=== PATIENT | female | born 1945 | race Caucasian/White ===

== ENCOUNTER 2018-06-18 15:06 | Emergency (ER) | payer MEDICARE, OTHER ==
[~2018-06-18] VITALS: Ht 152.4 cm; Wt 57.1 kg
[~2018-06-18 15:06] MED LIST: ATEN25; CALGLU500; FENT50TP; GABA600; GLUC500; HYDACE5 PO; LORA1; META800 PO; METO50ER; Norco 7.5-3251 EACH; Pravachol40 MG; TRET.1TC; VALD20 PO; XARELTO20 MG
[2018-06-18 15:35] LABS: BASOPHILS ABSOLUTE AUTO 0.04 K/mm3 (0.00-0.23); BASOPHILS PERCENT AUTO 1 % (0-2); EOSINOPHILS ABSOLUTE AUTO 0.04 K/mm3 (0.00-0.68); EOSINOPHILS PERCENT AUTO 1 % (0-6); Hematocrit 45.3 % (33.0-51.0); Hemoglobin 14.7 g/dL (11.5-16.0); IMMATURE GRAN ABSOLUTE AUTO 0.02 K/mm3 (0.00-0.10); IMMATURE GRAN PERCENT AUTO 0 % (0-1); LYMPHOCYTES PERCENT AUTO 14 % (21-46); MONOCYTES ABSOLUTE AUTO 0.46 K/mm3 (0.16-1.47); MONOCYTES PERCENT AUTO 6 % (4-13); Mean Corpuscular HGB 30.1 pg (26.0-34.0); Mean Corpuscular HGB Conc 32.5 g/dL (31.5-36.5); Mean Corpuscular Volume 93 fL (80-100); Mean Platelet Volume 9.6 fL (9.1-12.4); NEUTROPHILS ABSOLUTE AUTO 6.24 K/mm3 (1.96-9.15); NEUTROPHILS PERCENT AUTO 79 % (41-73); Platelet Count 246 K/mm3 (150-400); RDW Coefficient Variation 13.5 % (11.7-14.2); RDW Standard Deviation 46.4 fL (35.1-46.3); Red Blood Cell Count 4.88 M/mm3 (3.80-5.20)
[2018-06-18 15:47] LABS: International Normalized Ratio 1.04; Prothrombin Time Results 10.7 Sec (9.7-11.5)
[2018-06-18 15:54] LABS: Alanine Aminotransfer (ALT/SGP 18 U/L (12-78); Albumin, Blood 3.9 g/dL (3.4-5.0); Albumin/Globulin Ratio 0.9 (0.8-1.8); Alk Phos 76 U/L (50-136); Anion Gap 8 mmol/L (6-16); Aspartate Aminotrans (AST/SGOT 21 U/L (12-37); Bilirubin, Total 0.3 mg/dL (0.1-1.0); Blood Urea Nitrogen 13 mg/dL (8-24); Bun/Creatinine Ratio 15.3 (12.0-20.0); CO2, Blood 22 mmol/L (21-32); Chloride, Blood 108 mmol/L (98-108); Creatinine, Blood 0.85 mg/dL (0.40-1.00); Globulin, Blood 4.2 g/dL (2.2-4.0); Glomerular Filtration Rate >60 (60-); Glucose, Blood 102 mg/dL (70-99); Sodium, Blood 138 mmol/L (136-145); Total Protein, Blood 8.1 g/dL (6.4-8.2); Troponin I <0.015 ng/mL (0.000-0.040)
[2018-06-18] MEDS ORDERED: Norco 10-325 T1 EACH PO (18:58)
== END 2018-06-18 19:42 | disposition home or self-care (01) ==
LOC: ER 15:06
PROVIDERS: Emergency Medicine
DX: M25.512 Pain in left shoulder (principal); Z79.899 Other long term (current) drug therapy; Z87.891 Personal history of nicotine dependence
CPT/HCPCS: 36415; 71046; 71275; 80053; 84484; 85025; 85610; 85730; 93005; 93010; 96374; 96375; 96376; 99284-25; J2060; J3010; Q9967

== ENCOUNTER 2018-10-05 15:08 | Inpatient (IN) | payer MEDICARE, OTHER ==
[~2018-10-05] VITALS: Ht 154.9 cm; Wt 58.2 kg
[~2018-10-05 15:08] MED LIST changes: -FENT50TP; +FENT50TP TOP; +Norco 10-325 T1 EACH PO; -XARELTO20 MG; +XARELTO20 MG PO
[2018-10-05] MEDS ORDERED: Hydrocodone-Ap1 EA20 (15:29)
[2018-10-05 17:08] LABS: BASOPHILS ABSOLUTE AUTO 0.04 K/mm3 (0.00-0.23); BASOPHILS PERCENT AUTO 1 % (0-2); EOSINOPHILS ABSOLUTE AUTO 0.05 K/mm3 (0.00-0.68); EOSINOPHILS PERCENT AUTO 1 % (0-6); Hematocrit 42.1 % (33.0-51.0); Hemoglobin 13.6 g/dL (11.5-16.0); IMMATURE GRAN ABSOLUTE AUTO 0.02 K/mm3 (0.00-0.10); IMMATURE GRAN PERCENT AUTO 0 % (0-1); LYMPHOCYTES ABSOLUTE AUTO 0.95 K/mm3 (0.84-5.20); LYMPHOCYTES PERCENT AUTO 11 % (21-46); MONOCYTES ABSOLUTE AUTO 0.63 K/mm3 (0.16-1.47); MONOCYTES PERCENT AUTO 8 % (4-13); Mean Corpuscular HGB 30.8 pg (26.0-34.0); Mean Corpuscular HGB Conc 32.3 g/dL (31.5-36.5); Mean Corpuscular Volume 95 fL (80-100); Mean Platelet Volume 8.7 fL (9.1-12.4); NEUTROPHILS ABSOLUTE AUTO 6.64 K/mm3 (1.96-9.15); NEUTROPHILS PERCENT AUTO 80 % (41-73); Platelet Count 357 K/mm3 (150-400); RDW Coefficient Variation 12.7 % (11.7-14.2); RDW Standard Deviation 44.7 fL (35.1-46.3); Red Blood Cell Count 4.42 M/mm3 (3.80-5.20); White Blood Cell Count 8.33 K/mm3 (4.00-11.30)
[2018-10-05 17:37] LABS: Alanine Aminotransfer (ALT/SGP 18 U/L (12-78); Albumin, Blood 3.3 g/dL (3.4-5.0); Albumin/Globulin Ratio 0.8 (0.8-1.8); Alk Phos 70 U/L (50-136); Anion Gap 8 mmol/L (6-16); Aspartate Aminotrans (AST/SGOT 22 U/L (12-37); Bilirubin, Total 0.5 mg/dL (0.1-1.0); Blood Urea Nitrogen 11 mg/dL (8-24); Bun/Creatinine Ratio 16.6 (12.0-20.0); CO2, Blood 27 mmol/L (21-32); Calcium, Blood 8.8 mg/dL (8.5-10.1); Chloride, Blood 100 mmol/L (98-108); Creatinine, Blood 0.66 mg/dL (0.40-1.00); Globulin, Blood 4.1 g/dL (2.2-4.0); Glomerular Filtration Rate >60 (60-); Glucose, Blood 83 mg/dL (70-99); Potassium, Blood 4.5 mmol/L (3.5-5.5); Sodium, Blood 135 mmol/L (136-145); Total Protein, Blood 7.4 g/dL (6.4-8.2)
[2018-10-05 17:41] LABS: Source, Urine Catheter
[2018-10-05 17:48] LABS: Appearance, Urine Clear (Clear); Bilirubin, Urine Neg (Neg); Blood, Urine Neg (Neg); Color, Urine Yellow (P-Yellow); Glucose Qualitative, Urine Neg (Neg); Ketones, Urine Neg (Neg); Leukocyte Esterase, Urine 3+ (Neg); Nitrite, Urine Neg (Neg); Protein, Urine 1+ (Neg); Specific Gravity, Urine 1.015 (1.003-1.022); Urobilinogen, Urine NORM (Normal)
[2018-10-05 18:05] LABS: Bacteria Not Seen /hpf; Red Blood Cells, Urine Not Seen /hpf (0-2); Squamous Epithelial Cells Mod /hpf (Few)
--- NOTE | 2018-10-05 18:14 | NUR ---
PT HERE FROM ER [facility]IA [facility]. PT MULT ASSIST TO BED, TOLERATED WELL. PT ABLE TO MOVE R FOOT. PT HAS BRUISE TO R INNER THIGH. PT HAS KARIMI IN PLACE. NO SORES TO HEELS OR BOTTOM. PT A/O. REPORTS PAIN TOLERABLE. DENIES CP/SO, NAUSEA. PPX4. PT REPORTS HAVING NO MEDICATIONS IN BELONGINGS. SOME BELONGINGS SENT HOME WITH .
--- NOTE | 2018-10-05 22:44 | NUR ---
PROVIDER COMMUNICATION AT 2242, DR. POLANCO NOTIFIED PT CHRONIC PAIN, HOME PAIN MANGEMENT AND PT REQUEST FOR SLEEP AID. ORDERS RECIEVED AND ENTERED. TM.
[2018-10-06 08:02] LABS: BASOPHILS ABSOLUTE AUTO 0.03 K/mm3 (0.00-0.23); BASOPHILS PERCENT AUTO 0 % (0-2); EOSINOPHILS PERCENT AUTO 2 % (0-6); Hematocrit 40.7 % (33.0-51.0); Hemoglobin 13.3 g/dL (11.5-16.0); IMMATURE GRAN ABSOLUTE AUTO 0.03 K/mm3 (0.00-0.10); IMMATURE GRAN PERCENT AUTO 0 % (0-1); LYMPHOCYTES ABSOLUTE AUTO 0.89 K/mm3 (0.84-5.20); LYMPHOCYTES PERCENT AUTO 13 % (21-46); MONOCYTES ABSOLUTE AUTO 0.56 K/mm3 (0.16-1.47); MONOCYTES PERCENT AUTO 8 % (4-13); Mean Corpuscular HGB 30.5 pg (26.0-34.0); Mean Corpuscular HGB Conc 32.7 g/dL (31.5-36.5); Mean Corpuscular Volume 93 fL (80-100); NEUTROPHILS ABSOLUTE AUTO 5.07 K/mm3 (1.96-9.15); NEUTROPHILS PERCENT AUTO 76 % (41-73); Platelet Count 376 K/mm3 (150-400); RDW Coefficient Variation 12.8 % (11.7-14.2); RDW Standard Deviation 43.8 fL (35.1-46.3); Red Blood Cell Count 4.36 M/mm3 (3.80-5.20); White Blood Cell Count 6.68 K/mm3 (4.00-11.30)
--- NOTE | 2018-10-06 08:31 | NUR ---
SHIFT SUMMARY PT A&O X4 T/O SHIFT. PT NPO POST MIDNIGHT. CHONIC AND ACUTE PAIN IN RLE MANAGED PER EMAR. PT DENIES N/T; PPP. PT REPOSITIONED TOLERATED. CATHETER PATANT; STAT-LOCK IN PLACE. PT REPORTS TROUBLE SLEEPING T/O NIGHT. CALL LIGHT IN REACH; PT DEMONSTRATES USE. REPORT GIVEN TO DAY SHIFT RN.
[2018-10-06 08:38] LABS: Prothrombin Time Results 10.3 Sec (9.7-11.5)
[2018-10-06 08:40] LABS: Anion Gap 9 mmol/L (6-16); Blood Urea Nitrogen 10 mg/dL (8-24); Bun/Creatinine Ratio 16.9 (12.0-20.0); CO2, Blood 26 mmol/L (21-32); Calcium, Blood 8.8 mg/dL (8.5-10.1); Chloride, Blood 103 mmol/L (98-108); Creatinine, Blood 0.59 mg/dL (0.40-1.00); Glomerular Filtration Rate >60 (60-); Glucose, Blood 96 mg/dL (70-99); Potassium, Blood 4.2 mmol/L (3.5-5.5); Sodium, Blood 138 mmol/L (136-145)
--- NOTE | 2018-10-06 16:00 | NUR ---
TRANSFER TO ICU FOR A CIWA SCORE OF 25, AFTER SEVERAL TELEPHONE CALLS TO HOSPITALIST FOR ORDERS FOR CIWA PROTOCAL AND SEVERAL OTHER MEDICATIONS TO TREAT ANXIETY AND ALCOHOL WITHDRAWAL AND PAIN, WITHOUT ANY EFFECT. TRANSFERRED AT APPROXIMATELY 1530.
--- NOTE | 2018-10-06 17:22 | NUR ---
PT ADMITTED TO ICU AT 1630 FOR ACUTE ALCOHOL WITHDRAWAL. CIWA 30 ON ADMIT. ORIENTED TO SELF, ORIENTED AT TIMES TO PLACE AND SITUATION. PT THEN THOUGHT SHE WAS IN THE KITCHEN, HALLUCINATING THAT SHE WAS SEEING BUGS, EXTREMELY RESTLESS, C/O SEVERE ITCHING, "CRAWLING OUT OF MY SKIN, I CANT STOP MOVING". PT MADE SEVERAL COMMNETS THAT SHE COULD OR WOULD HELP US OUT BY DONATING HER "EGGS FOR BABIES" BUT WASNT SURE IF THEY WERE ANY GOOD ANYMORE. PT STATES THAT SHE DRINKS "CHAMPAGNE REGULARLY. PT C/O CONSTANT PAINTO RIGHT HIP BUT WAS TOO CONFUSED TO GIVE NUMBER. CNVI 5/5. ATIVAN 1 MG GIVEN. FENT 50MCG GIVEN. PRECEDX STARTED AT 0.3MCG. PT HYPERTENSIVE AND TACHY AT 130M ON ADMIT. WITHIN 45 MIN OF PRECEDEX BOTH HR AND BP IMPROVED. AFEBRILE. SATS >90% ON RA. BANANA BAG AND ROCPHEN ALSO STARTED. NEW IV PLACED TO R AC. PT IS SLEEPING NOW, AWAKENS FREQUENTLY, AND IS RESTLESS IN SLEEP. WILL ATTEMPT TO PLACE TRACTION WHEN PT MORE CALM.
--- NOTE | 2018-10-06 19:00 | NUR ---
ASSUMED CARE ASSUMED CARE OF PATIENT. AWAKE AND ALERT. CONFUSED AND DISORIENTED. ORIENTED TO SELF ONLY. FOLLOWS SIMPLE DIRECTIONS. MOVES ALL EXTREMITIES. CMS INTACT TO RLE. ATTEMPTS TO HAVE PT KEEP RLE STRAIGHT HAVE BEEN UNSUCCESSFUL. PT KICKS LEGS OUT AND DIGS FINGERNAILS IN/GRABS ONTO STAFF'S ARMS AT TIMES. CIWA >20. SOFT RESTRAINTS TO BILATERAL UPPER AND LOWER EXTREMITIES TO PROTECT PATIENT AND STAFF. PRECEDEX CONTINUES @ 0.7MCG/KG/HR. MONITOR SHOWS ST, RATE 100-110. BP STABLE. REMAINS ON RA- SATS 96%. RESPIRATIONS ARE EVEN AND UNLABORED, OCCASIONALLY TACHYPNEIC WITH AGITATION. KARIMI PATENT AND DRAINING CLEAR YELLOW URINE. BANANA BAG INFUSING @ 125CC/HR PER ORDER. SEE SHIFT ASSESSMENT FOR FULL ASSESSMENT.
--- NOTE | 2018-10-06 19:43 | NUR ---
LEFT FOR PROCEDURE WITH ANOTHER ICU PT, UPON RETURN PT OOB, DELIRIOUS, HAVING PULLED OUT BOTH IV'S. SEVERAL RN'S AND DIRECTOR OF MARKETING OPERATIONS AT BEDSIDE; HELPED PT TO BED. IV'S RESTARTED, ATIVAN GIVEN. 2MG ATIVAN INFILTRATED. PRECEDEX RESTARTED. PT VERY CONFUSED YELLING OUT AND ACTIVELY HALLUCINATING. REPORT GIVEN TO BERTA PHELPS
--- NOTE | 2018-10-07 05:41 | NUR ---
SHIFT SUMMARY NO ACUTE CHANGES DURING NOC. PRECEDEX CONTINUES @ 0.7MCG/KG/HR. MEDICATED WITH ATIVAN 2MG IV X 4 DOSES DURING NOC FOR CIWA 24-25. REMAINS IN SOFT BILATERAL WRIST AND ANKLE RESTRAINTS FOR PATIENT/STAFF SAFETY. MEDICATED WITH FENTANYL 50MCG IV X 5 DOSES DURING NOC FOR PAIN IN RIGHT HIP CNVI 12/25. NS INFUSING @ 75CC/HR PER ORDER. REMAINS ON RA- SATS 93-96%. RESPIRATIONS EVEN AND UNLABORED. OCCASIONALLY TACHYPNEIC WITH AGITATION. MONITOR SHOWS NSR-ST, RATE 90-100s. BP STABLE. PAS TO BLE. PT HAS BEEN NPO SINCE 1899. SCHEDULED FOR SURGERY ON RIGHT HIP. FEMUR XRAY PENDING. THIS AFTERNOON. KARIMI PATENT AND DRAINING TO GRAVITY. RLE CMS INTACT. WILL REPORT TO DAY SHIFT RN WHEN AVAILABLE.
--- NOTE | 2018-10-07 07:30 | NUR ---
ASSUMED CARE ASSUMED CARE OF PATIENT. PATIENT RESTING. AROUSES EASILY. WHEN AROUSED, YELLING OUT, CONFUSED, AND TRYING TO CLIMB OUT OF BED. PATIENT CONTINUES TO BE ON PRECEDEX AND MEDICATED WITH ATIVAN AND FENTANYL ABLE PER ORDERS. PATIENT TO HAVE POSSIBLE HIP SURGERY TODAY. WILL CONTINUE TO KEEP THE PATIENT NPO, CONTINUE TO MEDICATE FOR PAIN, CONTINUE TO MONITOR CIWA AND MEDICATE RELATED TO SCORE. WILL CONTINUE TO MONITOR PATIENT AND NOTIFY PHYSICIANS OF ANY CHANGES.
[2018-10-07 11:00] LABS: Base Excess Venous 1.2 mmol/L; PCO2 Venous 31.2 mmHg (38-42); PO2 Venous 108 mmHg (38-42)
--- NOTE | 2018-10-07 11:00 | NUR ---
DR PEARCE CONSULTED RELATED TO CONTINUED WITHDRAWL SYMPTOMS AND CONTINUED ELEVATED CIWA WITH PRECEDEX GTT. PATIENT STARTED ON VERSED GTT ALONG WITH PRECEDEX. WILL PLACE FENTANYL PATCHES TO HELP CONTROL PAIN. PATIENT NOT GOING TO SURGERY TODAY. WILL CONTINUE TO MONITOR CIWA AND MEDICATE FOR PAIN.
[2018-10-07 11:14] LABS: BASOPHILS ABSOLUTE AUTO 0.06 K/mm3 (0.00-0.23); BASOPHILS PERCENT AUTO 1 % (0-2); EOSINOPHILS ABSOLUTE AUTO 0.19 K/mm3 (0.00-0.68); EOSINOPHILS PERCENT AUTO 3 % (0-6); Hematocrit 36.7 % (33.0-51.0); Hemoglobin 12.2 g/dL (11.5-16.0); IMMATURE GRAN ABSOLUTE AUTO 0.02 K/mm3 (0.00-0.10); IMMATURE GRAN PERCENT AUTO 0 % (0-1); LYMPHOCYTES ABSOLUTE AUTO 0.62 K/mm3 (0.84-5.20); LYMPHOCYTES PERCENT AUTO 11 % (21-46); MONOCYTES ABSOLUTE AUTO 0.58 K/mm3 (0.16-1.47); MONOCYTES PERCENT AUTO 10 % (4-13); Mean Corpuscular HGB 30.8 pg (26.0-34.0); Mean Corpuscular HGB Conc 33.2 g/dL (31.5-36.5); Mean Corpuscular Volume 93 fL (80-100); Mean Platelet Volume 8.9 fL (9.1-12.4); NEUTROPHILS ABSOLUTE AUTO 4.29 K/mm3 (1.96-9.15); NEUTROPHILS PERCENT AUTO 75 % (41-73); Platelet Count 322 K/mm3 (150-400); RDW Coefficient Variation 12.6 % (11.7-14.2); RDW Standard Deviation 43.1 fL (35.1-46.3); Red Blood Cell Count 3.96 M/mm3 (3.80-5.20); White Blood Cell Count 5.76 K/mm3 (4.00-11.30)
[2018-10-07 11:20] LABS: U Amphetamine Screen Not Detected; U Barbituate Screen Not Detected; U Benzodiazapine Screen DETECTED; U Cannabinoids Screen Not Detected; U Cocaine Screen Not Detected; U Methadone Screen Not Detected; U Methamphetamine Screen Not Detected; U Opiates Screen DETECTED; U Phencyclidine Screen Not Detected
[2018-10-07 11:21] LABS: U Buprenorphine Screen Not Detected; U Oxycodone Screen Not Detected; U Propoxyphene Screen Not Detected
[2018-10-07 11:51] LABS: Alanine Aminotransfer (ALT/SGP 14 U/L (12-78); Albumin/Globulin Ratio 0.9 (0.8-1.8); Alk Phos 63 U/L (50-136); Anion Gap 8 mmol/L (6-16); Aspartate Aminotrans (AST/SGOT 26 U/L (12-37); Bilirubin, Total 0.5 mg/dL (0.1-1.0); Blood Urea Nitrogen 6 mg/dL (8-24); Bun/Creatinine Ratio 12.6 (12.0-20.0); CO2, Blood 24 mmol/L (21-32); Calcium, Blood 8.2 mg/dL (8.5-10.1); Chloride, Blood 106 mmol/L (98-108); Creatinine, Blood 0.48 mg/dL (0.40-1.00); Globulin, Blood 3.5 g/dL (2.2-4.0); Glomerular Filtration Rate >60 (60-); Glucose, Blood 149 mg/dL (70-99); Potassium, Blood 3.8 mmol/L (3.5-5.5); Sodium, Blood 138 mmol/L (136-145); Total Protein, Blood 6.5 g/dL (6.4-8.2)
--- NOTE | 2018-10-07 14:11 | NUR ---
PATIENT CURRENTLY RESTING. AROUSES EASILY. CONTINUES TO BE CONFUSED AND AGITATED WHEN AWAKE. FENTANYL PATCHES PLACED EARLIER. CONTINUES ON PRECEDEX GTT.
--- NOTE | 2018-10-07 18:43 | NUR ---
SUMMARY PATIENT CONTINUES TO BE ON PRECEDEX GTT AND VERSED GTT. PATIENT CONTINUES TO REQUIRE FENTANYL PRN FOR PAIN BUT LESS SINCE FENTANYL PATCHES WERE APPLIED. PATIENT VERY CONFUSED AND AGITATED WHEN AWAKE. DR. CASTREJON UPDATED ON PATIENT. NO PLAN YET FOR SURGERY. WILL GIVE REPORT TO ONCOMING SHIFT WHEN AVAILABLE.
--- NOTE | 2018-10-07 19:15 | NUR ---
ASSUMING CARE OF PT AT THIS TIME. PT REPORT RECEIVED AT BEDSIDE WITH OFFGOING NURSE, HELENA PHELPS. PT LAYING IN BED, PULLING ON RESTRAINTS, YELLING FOR "DARIUS", RESTLESS IN BED, AGITATED. VS STABLE - SEE VS FS. VERSED DRIP 1 MG/HR - WILL TITRATE TO EFFECT. PRECEDEX DRIP 1.2 MCG/KG/HR - WILL TITRATE TO EFFECT. PT CALM AFTER TALKING WITH PT. PT DOES NOT APPEAR TO BE IN DISTRESS AT THIS TIME. WILL TITRATE TO EFFECT.
--- NOTE | 2018-10-07 19:30 | NUR ---
ASSESSMENT PT CALM & COOPERATIVE AT TIMES. OTHERWISE, PT AGITATED, ANXIOUS, PULLING ON RESTRAINTS, YELLING FOR "DARIUS". PT RESPONDS TO VERBAL STIMULI, SPONT OPENS EYES, A&O TO SELF AND FAMILY, FOLLOWS COMMANDS, SLOW TO RESPOND, ABLE TO ANSWER SOME QUESTIONS. PT OCCASIONALLY ABLE TO STATE YEAR, EVENT, AND PLACE, BUT PT MOSTLY REMAINS CONFUSED. SENSATION INTACT. DENIES N/T. PT WOLFF. WEAKNESS RLE. OTHERWISE, NORMAL STRENGTH NOTED. PT TURNS SELF IN BED. PT C/O 11/29 MILLA IN RIGHT HIP. PT STATES PAIN HAS SIGNIFICANTLY IMPROVED. FENT PATCH 150 MCG. FENT PRN ADMISNITERED PRIOR TO ONCOMING SHIFT. CIWA ELEVATED. PRECEDEX 1.2 MCG/KG/MHR - WILL TITRATE TO EFFECT. VERSED 1 MG/HR - WILL TITRATE TO EFFECT. LUNGS CLEAR, LOWER LOBES DIMINIHSED. PT ON RA. OXY SAT >95%. RR 20'S. DENIES SOB. NO COUGHING. SHALLOW BREATHING. AFEBRILE. NSR. HR 60'S. BP STABLE - SEE VS FS. STRONG PULSES. WARM, PINK, DRY SKIN. HYPOACTIVE BT X4 QUADRANTS. ABD SOFT, NONTENDER. NO N/V. NO BM. F/C - CLEAR, YELLOW URINE NOTED. PIV X2. NS AT 75 ML/HR. PER REPORT - R HIP HX. WAITING FOR SURGICAL INTERVENTION AT THIS TIME.
--- NOTE | 2018-10-08 06:15 | NUR ---
SHIFT ASSESSMENT / DR. CASTREJON NO ACUTE CHANGES NOTED T/O SHIFT. PT CALM AND COOPERATIVE THIS AM. LESS AGITATION, ANXIETY, YELLING, AND CONFUSION NOTED THIS AM. PT RESPONDS TO VERABL STIMULI, SPONT OPENS EYES, A&O X4, SLOW TO RESPOND, FOLLOWS COMAMDNS, ABLE OT ANSWER MORE QUESTIOSN. PT C/O N/T TO RLE THIS AM. OTHERWISE SENSATION INTACT. PT WOLFF. WEAKNESS RLE. OTHERWISE, NORMAL STRENGTH NOTED. PT ASSISTS WITH TURNS. PT C/O BACK AND R HIP PAIN T/O SHIFT. CONT TO ASSESS FOR PAIN/DISCOFMORT AND MEDICATED WITH PAIN MEDICATIONS PER PHYSICIAN'S ORDER / UTILIZED NONPHARM METHODS. FENT PATCH 150 MCG. DECREASED CIWA SCORES T/O SHIFT. PRECEDEX ON STANDBY - CONT TO TITRATE TO EFFECT. VERSED ON STANDBY - CONT TO TITRATE TO EFFECT. MEDICATED FOR CIWA PER PHYSICIAN'S ORDER. LUNGS CLEAR, LOWER LOBES DIMINIHSED. PT ON RA. RR 14 TO 20'S. OXY SAT >90%. DENIES SOB. NO COUGHING. SHALLOW BREATHING. AFEBRILE. SB TO SR. HR 50'S TO 90'S. BP STABLE - SEE VS FS. STRONG PULSES. WARM, PINK, DRY SKIN. HYPOACTIVE BT X4 QUADRATNS. ABD SOFT, NONTENDER. NO N/V. NO BM. PT TOLERATING PO LIQUIDS. F/C - CLEAR, YELLOW URINE. PIV X3. NS AT 75 ML/HR. DR. CASTREJON CALLED ICU THIS AM. DR. CASTREJON INSTRUCTED TO ADVANCE DIET DIRECTED. DR. MCDUFFIE PLANNIGN SURGICAL INTERVENTION FOR TOMORROW FOR R HIP FX. WILL CONT TO MONITOR PT AND WILL PROVIDE BEDSIDE REPORT TO ONCOMING NURSE THIS AM.
--- NOTE | 2018-10-08 08:18 | NUR ---
Received report and assumed care of patient. Upon entering room for bedside report, pt is pleasant and calm. Pt continues on RA, lungs are clear in upper lobes, and dim in lowers. NS running at 75/hr. Pt sitting up for breakfast, will continue to monitor.
--- NOTE | 2018-10-08 13:01 | NUR ---
GAVE REPORT TO LENIN JOHNSON FOR TRANSFER ORDER TO 218 IN SURGICAL UNIT.
--- NOTE | 2018-10-08 13:02 | NUR ---
DOCTOR VISITS IN AM: DR. ORTEGA IN TO SEE PATIENT AND GAVE VERBAL ORDERS FOR PATIENT TO BE TRANSFERRED TO SURGICAL FLOOR. ADDITIONALLY, HE INQUIRED ABOUT HAVING SURGICAL PROCEDURE THIS DAY 10/08/18. MOVING FORWARD WITH SURGERY DATE OF 10/09/18. DR. PINZON IN TO SEE PATIENT. STATED LUNGS SOUND GOOD AND WILL SIGN OFF CARE AT THIS TIME. HE INQUIRED ABOUT SURGERY DATE, TO BE FOLLOWED UP WITH SURGEON. FOLLOW UP PHONE CALL TO DR. STALLWORTH TO VERIFY SURGERY DATE AND IF MED SHOULD BE GIVEN IN AM. HE SAID NPO AT MIDNIGHT, AND MEDS OKAY FOR AM. GAVE VERBAL ORDER FOR BUCKS TRACTION OF 5# TO BE APPLIED TO RIGHT LEG. RECEIVED TRANSFER ORDER TO SURGICAL 218. GAVE REPORT AND TRANSFERRED PATIENT.
--- NOTE | 2018-10-08 13:07 | NUR ---
CALLED DR. ORTEGA TO VERIFY TELEMETRY ORDER. GAVE VERBAL TELEPHONE ORDER TO DISCONTINUE TELEMETRY WHEN PATIENT IS TRANFERRED TO SURGICAL FLOOR.
--- NOTE | 2018-10-08 13:16 | NUR ---
received to room 218 per bed. patient awake, alert rates right hip pain 4/10 after traNSFER TO BED. PATIENT DENIES NUMBNESS OR TINGLING TO BILATERAL LEGS/FEET. bruise present to right posterior thigh. patient oriented to room and call system
--- NOTE | 2018-10-08 14:51 | NUR ---
PATIENT TELLS ME SHE IS FEELING ANXIOUS, MEDICATED WITH LIBRIUM. CIWA 7
--- NOTE | 2018-10-08 17:52 | NUR ---
5 POUNDS BUCKS TRACTION APPLIED TO RIGHR LEG, PATIENT MEDICATED WITH FENTANYL PRIOR TO APPLYING TRACTION. PATIENT UNABLE TO STATE DATE, TIME ASKING REPETITIVE QUESTIONS ABOUT WHEN HER SURGERY IS. PATIENT WAS UNABLE TO DIAL PHONE TO CALL HER - WAS ATTEMPTING TO USW TV REMOTE TO MAKE CALL. PATIENT PLEASANT AND COOPERATIVE. BED ALARM IN PLACE SINCE PATIENT ARRIVED IN ROOM JONO ALMONTE RN
[2018-10-09 04:54] LABS: BASOPHILS ABSOLUTE AUTO 0.04 K/mm3 (0.00-0.23); BASOPHILS PERCENT AUTO 1 % (0-2); EOSINOPHILS ABSOLUTE AUTO 0.23 K/mm3 (0.00-0.68); EOSINOPHILS PERCENT AUTO 4 % (0-6); Hematocrit 34.4 % (33.0-51.0); Hemoglobin 10.9 g/dL (11.5-16.0); IMMATURE GRAN ABSOLUTE AUTO 0.03 K/mm3 (0.00-0.10); IMMATURE GRAN PERCENT AUTO 1 % (0-1); LYMPHOCYTES ABSOLUTE AUTO 0.97 K/mm3 (0.84-5.20); LYMPHOCYTES PERCENT AUTO 17 % (21-46); MONOCYTES ABSOLUTE AUTO 0.63 K/mm3 (0.16-1.47); MONOCYTES PERCENT AUTO 11 % (4-13); Mean Corpuscular HGB Conc 31.7 g/dL (31.5-36.5); Mean Corpuscular Volume 95 fL (80-100); Mean Platelet Volume 9.2 fL (9.1-12.4); NEUTROPHILS ABSOLUTE AUTO 3.72 K/mm3 (1.96-9.15); NEUTROPHILS PERCENT AUTO 66 % (41-73); Platelet Count 344 K/mm3 (150-400); RDW Coefficient Variation 12.9 % (11.7-14.2); RDW Standard Deviation 44.7 fL (35.1-46.3); Red Blood Cell Count 3.63 M/mm3 (3.80-5.20); White Blood Cell Count 5.62 K/mm3 (4.00-11.30)
--- NOTE | 2018-10-09 06:36 | NUR ---
SUMMARY PT WITH R FX HIP. PENDING OR TODAY. RLE WITH EXTERNAL ROTATION NOTED. TOLERATES BUCKS TRACTION. IV PAIN MEDS REPORTED EFFECTIVE.
--- NOTE | 2018-10-09 11:58 | NUR ---
PATIENT TO DAY SURGERY AT THIS TIME.
--- NOTE | 2018-10-09 12:17 | NUR ---
History, Chart, Medications and Allergies reviewed before start of procedure.Patient confirms NPO status and agrees with scheduled surgery. Surgical site prepped with 2% Chlorhexidine cloth wipe. LARGE AREA OF ERRYTHEMIA TO RAC AREA, APPEARS INFILATRATION SITE FROM IV.
--- NOTE | 2018-10-09 16:40 | NUR ---
PATIENT RETURNED TO ROOM FROM PACU. AWAKE, DENIES NAUSEA, CP, SOB OR PAIN AT THIS TIME. R HIP WITH AQUACEL DRESSING, D&I. LS CLEAR. SATS 99% ON 2L, DESATS TO 80'S WHEN SHE REMOVES O2. HYPERTENSIVE, WILL CONT TO MONITOR. MOVES FEET, CIRC CHECKS WNL. HRR. BT'S HYPO. SPOUSE IN ROOM. CONT TO MONITOR.
--- NOTE | 2018-10-09 19:01 | NUR ---
PATIENT RESTING QUIETLY, TAKING WATER PO W/O C/O. WILL GIVE REPORT TO LADY PHELPS.
--- NOTE | 2018-10-10 05:10 | NUR ---
SHIFT SUMMARY: PT POD #1 RIGHT TOTAL HIP. PAIN MANAGED WITH 10 MG OXY, FENTANYL AND LIBRIUM PER EMAR. USING BEDPAN MOST OF SHIFT. AMBULATED TO BSC ONCE WITH 2 ASSIST. DRINKING AND VOIDING WELL. DENIES N/V. AQUACEL TO R HIP CDI. SKUDS, SAMUEL HOSE AND ICE PACK IN PLACE. HR RANGING FROM 90-105 MOST OF SHIFT. CONTINUE TO ASSESS CWA Q4. PT FORGETFUL AND ANXIOUS AT TIMES. BED ALARM ON FOR SAFETY. PT RESTING MOST OF SHIFT AFTER ADMINISTRATION OF LIBRIUM.
[2018-10-10 05:16] LABS: BASOPHILS ABSOLUTE AUTO 0.03 K/mm3 (0.00-0.23); BASOPHILS PERCENT AUTO 0 % (0-2); EOSINOPHILS ABSOLUTE AUTO 0.06 K/mm3 (0.00-0.68); EOSINOPHILS PERCENT AUTO 1 % (0-6); Hematocrit 31.2 % (33.0-51.0); Hemoglobin 10.1 g/dL (11.5-16.0); IMMATURE GRAN ABSOLUTE AUTO 0.05 K/mm3 (0.00-0.10); IMMATURE GRAN PERCENT AUTO 1 % (0-1); LYMPHOCYTES ABSOLUTE AUTO 0.71 K/mm3 (0.84-5.20); LYMPHOCYTES PERCENT AUTO 8 % (21-46); MONOCYTES ABSOLUTE AUTO 0.92 K/mm3 (0.16-1.47); MONOCYTES PERCENT AUTO 10 % (4-13); Mean Corpuscular HGB Conc 32.4 g/dL (31.5-36.5); Mean Corpuscular Volume 96 fL (80-100); NEUTROPHILS ABSOLUTE AUTO 7.69 K/mm3 (1.96-9.15); NEUTROPHILS PERCENT AUTO 81 % (41-73); Platelet Count 352 K/mm3 (150-400); RDW Coefficient Variation 12.9 % (11.7-14.2); Red Blood Cell Count 3.26 M/mm3 (3.80-5.20); White Blood Cell Count 9.46 K/mm3 (4.00-11.30)
[2018-10-10 05:42] LABS: Anion Gap 9 mmol/L (6-16); Blood Urea Nitrogen 8 mg/dL (8-24); Bun/Creatinine Ratio 12.2 (12.0-20.0); CO2, Blood 26 mmol/L (21-32); Calcium, Blood 8.1 mg/dL (8.5-10.1); Chloride, Blood 105 mmol/L (98-108); Creatinine, Blood 0.66 mg/dL (0.40-1.00); Glomerular Filtration Rate >60 (60-); Glucose, Blood 110 mg/dL (70-99); Potassium, Blood 4.1 mmol/L (3.5-5.5); Sodium, Blood 140 mmol/L (136-145)
--- NOTE | 2018-10-10 15:21 | NUR ---
SHIFT SUMMARY PT A&OX4, VSS, POD#1 R TOTAL HIP, AQUACEL CDI, TEDS, SCDS, POLAR LUCY ON. PAIN MANAGED WITH FENTANYL PATCH, 10 MG OXY, TYLENOL & TORADOL. SEGUNDO PO, DENIES N&V. AMB W/FWW & GB 1 PP MOD ASSIST TO BRP, CHAIR T/O SHIFT. VOIDING WELL. WILL CTM & TX PER EMAR UNTIL REPORT GIVEN TO ONCOMING NOC RN.
--- NOTE | 2018-10-11 01:27 | NUR ---
PT WOKE UP SOMEWHAT CONFUSED, CALLING OUT FOR BRIGID. PT REPORTS THINKING SHE WAS AT HOME AND STATES FEELING ANXIOUS. VS AND CIWA CHECKED. CIWA AT 4. HR AT 129. WILL MEDICATE WITH ATIVAN FOR ANXIETY AND WILL CONTINUE TO MONITOR HR.
--- NOTE | 2018-10-11 04:20 | NUR ---
SHIFT SUMMARY: PT POD #2 R TOTAL HIP. PAIN MANAGED WITH TYLENOL, TORADOL, FENT PATCH AND OXY 10 MG. TRANSFERRED FROM CHAIR TO BED IN BEGINNING OF SHIFT. PT UP TO BATHROOM USING WALKER 1 SBA. UNSTEADY GAIT. APPEARS ANXIOUS AND DISORIENTED UPON WAKENING AT APPROX 0100. CWA AT 4 AND HR AT 129. GIVEN ATIVAN PER EMAR. HR DECREASED TO 108. VOIDING AND DRINKING ADEQUATE AMT. WILL CONTINUE TO MONITOR FOR CHANGES IN HR AND INFORM DAY SHIFT RN.
--- NOTE | 2018-10-11 09:53 | NUR ---
YANNA IN TO SEE PT RECENTLY.
--- NOTE | 2018-10-11 12:19 | NUR ---
DR ORTEGA RECENTLY TO SEE PT.
--- NOTE | 2018-10-11 16:32 | NUR ---
SHIFT SUMMARY PT EATING AND DRINKING. VOIDING. PASSING GAS. PT BEEN GIVEN BOWEL CARE PER PT REQ, DISCUSSED BOWEL CARE WITH PT. PT BEEN UP TO CHAIR WITH TAB ALARM IN PLACE. PT BEEN USING CALL LIGHT APPR. PT HAVING LOW ALC W/D SYMPTOMS, BEEN MED WITH LIBRIUM. PT WORKED WITH THERAPY. PT BEEN ASSISTED WITH ADL'S PRN.
--- NOTE | 2018-10-12 04:08 | NUR ---
SHIFT SUMMARY: PT HAS DONE WELL THIS SHIFT. REPORTS IMPROVEMENT WITH PAIN MANAGEMENT. PAIN MANAGED WITH SCHED TYLENOL, TORADOL AND OXY PER EMAR. GIVEN LIBRIUM ONCE THIS SHIFT. CWA'S IMPROVING. MOST RECENT CWA AT 0. PT STILL TACHY RANGING FROM 100-110. OOB TO BATHROOM ONCE. DICUSSED FALL PREVENTION, SAFETY AND HIP PRECAUTIONS WITH PT. CONTINUE TO REINFORCE. BM X2. VOIDING WELL. NO CONCERNS AT THIS TIME.
--- NOTE | 2018-10-12 12:37 | NUR ---
Initial Visit: Palliative Care Consult for AD/POLST. Pt is A&O and denies pain at this time. Pt's is present during visit. Pt reports adequate support at home with her debbie. Pt states that she is ready to go home today. Discussed POLST/AD with Pt and she reports a completed AD at home. Her reports that he will deliver a copy of AD to medical records. Pt reports that she will recieve care from home health for physical therapy and reports no concerns at this time. Plan is to obtain copy of AD. Will remain available.
[2018-10-12] MEDS ORDERED: DOCU100 PO (14:45)
[2018-10-12] MEDS ORDERED: CYCL10 PO (14:45)
[2018-10-12] MEDS ORDERED: GABA600 PO (14:46)
[2018-10-12] MEDS ORDERED: TEMA15 PO (14:46)
--- NOTE | 2018-10-12 15:09 | NUR ---
discharge instructions reviewed with patients and questions answered. patient discharged to home with
--- NOTE | 2018-10-12 15:48 | NUR ---
patients telling me that patient needs a new prescription for pain medicine. contacted joel leblanc banner ccordinator. per joel a months supply prescription was given to patient on 09/18/18. per suzy patient is to check for medication at home and if she does not have any should call her provider
== END 2018-10-12 15:34 | disposition home health service (06) | DRG 469 ==
LOC: ER 15:08 → ICUW 16:57 → SURS 16:57 → ICUW 10-06 16:30 → SURS 10-08 13:10
PROVIDERS: Emergency Medicine; Internal Medicine; Internal Medicine Pulmonary Disease; Orthopaedic Surgery; ADMIT Internal Medicine
PROC: 0SR90JZ Replacement of Right Hip Joint with Synthetic Substitute, Open Approach (ICD-10-PCS; principal; 2018-10-09 12:30)
DX: S72.011A Unspecified intracapsular fracture of right femur, initial encounter for closed fracture (principal); G93.41 Metabolic encephalopathy; F10.231 Alcohol dependence with withdrawal delirium; N39.0 Urinary tract infection, site not specified; G62.0 Drug-induced polyneuropathy; S09.90XA Unspecified injury of head, initial encounter; Z78.1 Physical restraint status; T45.1X5A Adverse effect of antineoplastic and immunosuppressive drugs, initial encounter; W01.0XXA Fall on same level from slipping, tripping and stumbling without subsequent striking against object, initial encounter; B95.1 Streptococcus, group B, as the cause of diseases classified elsewhere; M16.10 Unilateral primary osteoarthritis, unspecified hip; Y93.89 Activity, other specified; Y92.9 Unspecified place or not applicable; I73.9 Peripheral vascular disease, unspecified; Z86.73 Personal history of transient ischemic attack (TIA), and cerebral infarction without residual deficits; Z85.118 Personal history of other malignant neoplasm of bronchus and lung; Z92.21 Personal history of antineoplastic chemotherapy; Z79.899 Other long term (current) drug therapy; Z86.718 Personal history of other venous thrombosis and embolism; Z79.01 Long term (current) use of anticoagulants; Z90.13 Acquired absence of bilateral breasts and nipples; Z87.891 Personal history of nicotine dependence; Z95.828 Presence of other vascular implants and grafts
CPT/HCPCS: 36415; 51702; 70450; 71045; 72170; 73502; 73552; 74176; 80048; 80053; 81001; 82803; 85025; 85610; 86850; 86900; 86901; 87086; 87147; 88305; 88311; 93005; 93010; 93971; 96374; 96375; 97116; 97162; 97164; 97165; 97530; 97535; 99285-25; C1776; C9113; J0171; J0690; J0696; J0735; J1100; J1170; J1644; J1885; J2060; J2250; J2270; J2405; J2710; J2795; J3010; J3411; J3475; J7030; J7042; J7120

== ENCOUNTER 2019-04-27 08:16 | Day surgery (SDC) | payer MEDICARE, OTHER ==
[~2019-04-27] VITALS: Ht 154.9 cm; Wt 55.0 kg
[~2019-04-27 08:16] MED LIST changes: +CYCL10 PO; +DOCU100 PO; +GABA300 PO; +Hydrocodone-Ap1 EA20; +TEMA15 PO
--- NOTE | 2019-04-27 16:32 | NUR ---
PT R GROIN SITE STABLE, PT AMB TO BTR WELL, DRESSED, HERE FOR RIDE HOME, TR BAND REMOVED, SITE STABLE BUT BRUISED, NO ACTIVE BLEEDING, SLIGHT PRESSURE DRESSING PLACED BY REJI PHELPS, PT DC'D BY BY JOE RN W DRIVING PT HOME
== END 2019-04-27 16:30 | disposition home or self-care (01) ==
LOC: MHTC 08:16
DX: I77.1 Stricture of artery (principal); I65.23 Occlusion and stenosis of bilateral carotid arteries
CPT/HCPCS: 36215; 36223; 36225; 75710; 85347; 99152; 99153; C1760; C1769; C1887; C1894; J1644; J2060; J2250; J3010; J7030; Q9967